=== PATIENT | female | born 1945 ===

== ENCOUNTER 2017-02-06 21:07 | Inpatient (IN) ==
[2017-02-06] MEDS ORDERED: SODIUM CHLORIDE 0.9% 1,000 ML IV STA (21:40)
[2017-02-06] MEDS ORDERED: LEVOFLOXACIN INJ 750 MG in PREMIX 1 EACH IV STA (21:40)
[2017-02-06] MEDS ORDERED: VANCOMYCIN INJ 1,000 MG in SODIUM CHLORIDE 0.9% 250 ML IV STA (21:40)
[2017-02-06] MEDS ORDERED: VANCOMYCIN 1,000 MG VIAL ONE (22:23)
[2017-02-06 23:23] LABS: Lactic Acid 1.5 MMOL/L (0.4-2.0)
[2017-02-06 23:26] LABS: Troponin I Only 0.028 NG/ML (0.00-0.045)
[2017-02-07] MEDS ORDERED: NOREPINEPHRINE 4 MG/4 ML VIAL IV ONE (00:09)
--- NOTE | 2017-02-07 00:27 | Emergency Department Note ---
Gerard Avila Brittany, am scribing for, and in the presence of, Melissa Watson MD 21:46. Shirley Avila Leanne, MD, personally performed the services described in this documentation, ascribed by Mendy Gee in my presence, and it is both accurate and complete . Arrival - Arrival Chief Complaint: Non-Specific Stated Complaint: left arm swelling, brusing to right side of chest ED Nursing Triage Note: Patient to room via ems. Patient was transfered from [facility] for sepsis, left arm swelling, cellulitis and possible pneumonia. Patient has brusing to her right chest and arm as well. Patient is hypertensive and hypothermia. Mode of Arrival: Stretcher Limitations: No Limitations Source: Patient, RN Notes Reviewed Time Seen by Provider: 02/06/17 21:28 - History of Present Illness HPI Narrative: Patient is a 71 y/o [place] female presenting to the ED by EMS from [facility] for further evaluation of Sepsis, Left Upper Extremity Swelling, Cellulitis, and PNA. Patient states that she has had swelling to the LUE and complains of adamson localized to the right knee and ankle. She denies suffering any adamson to the LUE. Patient reports that adamson were a result of spilling a pot of hot beans onto her RLE. Patient does have a Pacemaker and history of Left Breast CA with prior Left Breast Mastectomy. She has some suspicious ecchymosis to the right breast. Patient is unsure of where this came from. In room patient has a blood pressure of 98/41 mmHg and upon arrival was noted to have a temperature of 93.0. Further history is unobtainable due to patient being somewhat of a poor historian. No other complaint/pain. Allergies/Adverse Reactions: Allergies Allergy/AdvReac Type Severity Reaction Status Date / Time Sulfa (Sulfonamide Allergy Unknown Unknown/Unable Verified 02/06/17 21:20 Antibiotics) to obtain Home Medications: Home Medications Medication Instructions Recorded Confirmed Type Carvedilol 0.5 tablet PO BID 09/19/15 05/06/16 History Furosemide Tab [Lasix Tab] 40 mg PO DAILY 09/19/15 05/06/16 History Gabapentin Cap/Tab [Neurontin 100 mg PO BID 09/19/15 09/19/15 History Cap/Tab] Simvastatin 20 mg PO DAILY 09/19/15 05/06/16 History Spironolactone [Aldactone] 25 mg PO DAILY 09/19/15 05/06/16 History Aspirin/Calcium Carbonate/Mag 325 mg PO DAILY #100 tablet 09/23/15 Rx [Aspirin Buffered 325 mg Tab] Insulin Glargine [Lantus] 10 unit SUBCUT BEDTIME #10 ml 09/23/15 Rx Lactulose Liquid [Chronulac] 20 gm PO Q4H PRN #30 udcup 09/23/15 Rx glipiZIDE XL [Glucotrol Xl] 10 mg PO DAILY tablet 09/23/15 05/06/16 Rx Aspirin [Ecotrin] 81 mg PO DAILY 05/06/16 05/06/16 History Nitroglycerin [Nitroglycerin SL 0.4 mg SL Q5M PRN 05/06/16 05/06/16 History Tab] Saxagliptin HCl [Onglyza] 5 mg PO DAILY 05/06/16 05/06/16 History Meclizine [Antivert] 25 mg PO TID #14 tablet 11/02/16 Rx Review of System - Review of System ROS unobtainable: other (limited due to patient being a poor historian) 12 point system: reviewed and no additional remarkable complaints except as stated - Review of System Constitutional: Absent: chills, fever Respiratory: Absent: respiratory distress Cardiovascular: Absent: chest pain Gastrointestinal: Absent: abdominal pain, nausea, vomiting, diarrhea, constipation Musculoskeletal: Present: as per HPI Skin: Present: as per HPI Neurological: Absent: headache Medical,Surgical,& Family Hx - Medical History Cardio: History of: CHF, Hypertension, Pacemaker, Cardiovascular Problems ( murmur) Endocrine: History of: Diabetes Mellitus (IDDM), Diabetes Mellitus (NIDDM), Dyslipidemia Gastrointestinal: History of: Diverticulitis/ Diverticulosis Reproductive: History of: Breast Cancer (remission, did have chemo and radiation ) - Surgical History Cardiac Surgeries: Sugical HX of: Cardiac Catheterization (stent), Vascular Access Devices (pacer) Reproductive Surgeries: Surgical HX of;: Breast Surgery (left breast removed.) - Family History Family History: Reports;: Family Diabetes, Family Heart Disease - Social History Smoking Status: Never smoker Frequency of Alcohol Use: None Type of Drug Use: None Exam Vital Signs: Vital Signs Temperature 93.0 F L 02/06/17 21:08 Pulse Rate 60 05/06/17 21:08 Respiratory Rate 15 02/06/17 22:16 Blood Pressure 92/55 02/06/17 21:08 O2 Sat by Pulse Oximetry 97 02/06/17 21:08 - General General appearance: alert, in no apparent distress - Head Head exam: Present: atraumatic, normocephalic, normal inspection - Eye Eye exam: Present: normal appearance, PERRL, EOMI - ENT ENT exam: Present: normal exam, normal oropharynx - Neck Neck exam: Present: normal inspection, full ROM, trachea midline - Chest Chest inspection: Present: symmetric chest wall rise. Absent: normal inspection (diffuse ecchymosis and erythema to the right breast; left breast mastectomy) - Respiratory Respiratory exam: Present: normal lung sounds bilaterally. Absent: rales, rhonchi, wheezes - Cardiovascular Cardiovascular exam: Present: regular rate, normal rhythm, normal heart sounds. Absent: murmur, rubs, gallop - Abdominal Exam Abdominal exam: Present: soft, normal bowel sounds. Absent: distention, tenderness - Extremities Exam Extremities exam: Present: full ROM. Absent: normal inspection (second degree adamson to the right knee and right ankle; swollen left upper extremity) - Back Exam Back exam: Absent: normal inspection (erythematous areas on the back) - Neurological Exam Neurological exam: Present: alert, oriented X3, CN II-XII intact. Absent: motor sensory deficit - Psychiatric Psychiatric exam: Present: normal affect, normal mood - Skin Skin exam: Present: warm, dry, other (ecchymotic areas to the right breast; erythema to the back; adamson noted to the right knee and right ankle) Course Course Narrative: ns bolus, added vanc and levaquin. pressure still around 90s. added pressors. Results - Labs Lab Results: I have reviewed the patients labs Labs: Laboratory Tests 02/06/17 02/06/17 22:54 22:54 Lactic Acid 1.5 Troponin I 0.028 C-Reactive Protein 5.08 H Laboratory Tests 02/06/17 22:54 ESR Westergren 2 - EKG EKG results: interpreted by CAMILLE - Impressions paced rhythm. no st elevation. rate of 60 - Diagnostic Findings Procedure: CT - chest: report reviewed by me (Nonspecific right chest wall and axillary soft tissue edema without evidence of organized hematoma or concerning fluid collection. Pulmonary edema with bilateral pleural effusions, atelectasis , and body wall edema and ascites suggesting diffuse capillary leak.) Disposition Clinical Impression: Diabetes mellitus, Chronic CHF (congestive heart failure), Cellulitis, Sepsis Case discussed with: patient Condition: Guarded Additional Instructions: admit to hospitalist
[2017-02-07] MEDS: NOREPINEPHRINE 8 MG in SODIUM CHLORIDE 0.9% 242 ML IV SCH (00:34)
[2017-02-07] MEDS ORDERED: LEVOFLOXACIN INJ 150 ML IV ONE (00:35)
--- NOTE | 2017-02-07 02:00 | Hospitalist History & Physical ---
Assessment and Plan (1) Septic shock Status: Acute Assessment and plan: Secondary to cellulitis of left forearm and right lower extremity Continue IV vancomycin, pharmacy to dose Continue Zosyn Imaging of the affected areas with plain films to assess for air/possibility of necrotizing fasciitis Continue Levophed, admit to the ICU Lactate trended Workup for DIC Current Visit: Yes (2) CKD (chronic kidney disease) stage 3, GFR 30-59 ml/min Status: Acute Assessment and plan: Appears to be likely near baseline, monitor urine output closely Current Visit: Yes (3) Lactic acidosis Status: Acute Assessment and plan: Initial lactate 2.8, is trended down with IVF's Current Visit: Yes (4) Thrombocytopenia Status: Acute Assessment and plan: Uncertain cause. Differential includes sepsis, liver disease, medications Workup for DIC/hemolysis Treat underlying sepsis Workup for liver disease with liver ultrasound Current Visit: Yes (5) Elevated liver enzymes Status: Acute Assessment and plan: Total bilirubin 3.8, transaminases without a clear pattern of injury. May have underlying cirrhosis or could be secondary to sepsis. Liver ultrasound. Current Visit: Yes (6) Diabetes mellitus Status: Acute Assessment and plan: Glucose 115 and [facility] Hold saxagliptin and Lantus 10 units nightly Serial fingerstick glucose, lispro sliding scale insulin Current Visit: Yes Qualifiers: Diabetes mellitus type: type 2 Diabetes mellitus complication status: with kidney complications Diabetes mellitus complication detail: with chronic kidney disease Diabetes mellitus half-way insulin use: with termite control representative use Chronic kidney disease stage: stage 3 (moderate) Qualified Code(s): E11.22 - Type 2 diabetes mellitus with diabetic chronic kidney disease; N18.3 - Chronic kidney disease, stage 3 (moderate); Z79.4 - nursing home (current) use of insulin (7) Chronic systolic (congestive) heart failure Status: Acute Assessment and plan: Respiratory status currently stable despite distributive shock, BNP 136,000 spare further fluids as much as possible Hold Coreg, Lasix and Aldactone secondary to septic shock Current Visit: No (8) Cellulitis Status: Acute Assessment and plan: Antibiotics and imaging as above Current Visit: Yes History of Present Illness Chief complaint: Septic shock History of present illness: Ms. Blackmon is a 71 year old female with hypertension, diabetes, left breast cancer status post mastectomy, pacemaker, CKD 3, heart failure the presented with a chief complaint of septic shock. Patient currently has an altered mental status and is unable to provide to her own history. From what I can gather looking through records it looks as though home health directed her to go to the [facility] where she was found to have sepsis secondary to cellulitis. She has redness and swelling of the left arm with some denuded skin. She has superficial bruising over her pacemaker. She has ulcerations on her anterior right leg which reportedly are third degree adamson from spilling boiling hot baked beans. She was started on vancomycin and Zosyn which she received around 4 PM. She was transferred to [place] for higher level of care where she persisted to be hypotensive despite fluid resuscitation and was started on levophed. She was also given an additional dose of vancomycin at 9 PM and a first dose of Levaquin at midnight. She has been hypothermic down to 91.5 rectally and was placed on a warming blanket. At the time of my exam patient was disoriented and gave a bizarre chief complaint of "getting shot" but she was able to deny shortness of breath, chest pain, abdominal pain. She did say that she was hungry. I have reviewed the workup performed in the emergency department including lab and imaging data. I discussed her case to the emergency department providers. Home Medications Medication Instructions Recorded Confirmed Type Carvedilol 0.5 tablet PO BID 09/19/15 05/06/16 History Furosemide Tab [Lasix Tab] 40 mg PO DAILY 09/19/15 05/06/16 History Gabapentin Cap/Tab [Neurontin 100 mg PO BID 09/19/15 09/19/15 History Cap/Tab] Simvastatin 20 mg PO DAILY 09/19/15 05/06/16 History Spironolactone [Aldactone] 25 mg PO DAILY 09/19/15 05/06/16 History Aspirin/Calcium Carbonate/Mag 325 mg PO DAILY #100 tablet 09/23/15 Rx [Aspirin Buffered 325 mg Tab] Insulin Glargine [Lantus] 10 unit SUBCUT BEDTIME #10 ml 09/23/15 Rx Lactulose Liquid [Chronulac] 20 gm PO Q4H PRN #30 udcup 09/23/15 Rx glipiZIDE XL [Glucotrol Xl] 10 mg PO DAILY tablet 09/23/15 05/06/16 Rx Aspirin [Ecotrin] 81 mg PO DAILY 05/06/16 05/06/16 History Nitroglycerin [Nitroglycerin SL 0.4 mg SL Q5M PRN 05/06/16 05/06/16 History Tab] Saxagliptin HCl [Onglyza] 5 mg PO DAILY 05/06/16 05/06/16 History Meclizine [Antivert] 25 mg PO TID #14 tablet 11/02/16 Rx Allergies Allergy/AdvReac Type Severity Reaction Status Date / Time Sulfa (Sulfonamide Allergy Unknown Unknown/Unable Verified 02/06/17 21:20 Antibiotics) to obtain Medical,Surgical,& Family Hx - Medical History Cardio: History of: CHF, Hypertension, Pacemaker, Cardiovascular Problems ( murmur) Endocrine: History of: Diabetes Mellitus (IDDM), Diabetes Mellitus (NIDDM), Dyslipidemia Gastrointestinal: History of: Diverticulitis/ Diverticulosis Reproductive: History of: Breast Cancer (remission, did have chemo and radiation ) - Surgical History Cardiac Surgeries: Sugical HX of: Cardiac Catheterization (stent), Vascular Access Devices (pacer) Reproductive Surgeries: Surgical HX of;: Breast Surgery (left breast removed.) - Family History Family History: Reports;: Family Diabetes, Family Heart Disease - Social History Smoking Status: Never smoker Frequency of Alcohol Use: None Type of Drug Use: None Marital Status: Unknown ROS unobtainable: due to mental status Exam - Constitutional Vitals: Period Temp Pulse Resp BP Sys/Minor Pulse Ox Last 24 Hr 93.0 F 60-60 11-15 79-115/41-55 96-99 General appearance: over weight Exam: - Eye Eye exam: Present: EOMI. Absent: conjunctival injection, scleral icterus Pupils: Present: ROGE - ENT ENT exam: Present: normal external ear exam, normal oropharynx - Expanded ENT Exam Mouth exam: Present: moist - Neck Neck exam: Present: normal inspection. Absent: lymphadenopathy, thyromegaly - Respiratory Respiratory exam: Present: clear to auscultation bilaterally. Absent: accessory muscle use, rales, rhonchi, wheezes - Cardiovascular Cardiovascular exam: Present: regular rate and rhythm. Absent: diastolic murmur , systolic murmur - GI/Abdominal GI/Abdominal exam: Present: normal bowel sounds, soft. Absent: distended, hyperactive bowel sounds, hypoactive bowel sounds, organomegaly, tenderness, rebound - Extremities Exam Extremities exam: Present: Extensive subcutaneous edema, worse in left forearm, right lower extremity, but also present and left lower extremity. Ulcerations which may be third degree adamson on her left forearm and right lower leg with surrounding erythema and weeping fluid. - Neurological Exam Neurological exam: Present: alert, disoriented, CN II-XII intact. Absent: motor sensory deficit - Psychiatric Psychiatric exam: Present: Confused affect - Skin Skin exam: Present: Cool, dry. Results - Impressions Paced rhythm with rate set at 60 - Diagnostic Findings Procedure: CT - chest: report reviewed by me, X-ray: report reviewed by me
[2017-02-07] MEDS ORDERED: ACETAMINOPHEN 325 MG TABLET PO PRN (02:59)
[2017-02-07] MEDS ORDERED: NITROGLYCERIN SL 0.4 MG TABLET SL PRN (02:59)
[2017-02-07] MEDS ORDERED: DEXTROSE 50% 25 GM/50 ML VIAL IV PRN (02:59)
[2017-02-07] MEDS ORDERED: GLUCAGON 1 MG VIAL IM PRN (02:59)
[2017-02-07 03:50] LABS: Albumin 1.5 G/DL (3.4-5.0); Bilirubin,Total 2.5 MG/DL (0.2-1.0); Calcium 7.2 MG/DL (8.5-10.1); Magnesium 2.3 MG/DL (1.8-2.4); Osmolality,Calculated 297.1 MOS/KG (273-304); Potassium 4.3 MMOL/L (3.5-5.1); Total Protein 4.9 G/DL (6.4-8.3)
[2017-02-07] MEDS ORDERED: PIPERACILLIN/TAZOBACTAM 3,375 MG in SODIUM CHLORIDE 0.9% 100 ML IV ONE (04:00)
[2017-02-07 04:07] LABS: INR 1.9; PT Patient Result 20.7 SECS
[2017-02-07 04:08] LABS: Basophils % 0.1 % (0.0-0.8); Eosinophils # 0.1 10*3/uL (0.0-0.87); Eosinophils % 1.4 % (0.00-10.9); Hematocrit 36.8 VOL% (35.7-47.0); Hemoglobin 11.8 GM/DL (12.0-16.0); Immature Granulocytes % 0.7 %; Immature Granulocytes Absolute 0.06 #; Lymphocytes # 0.3 10*3/uL (1.4-4.0); Mean Corpuscular HGB Conc 32.1 GM/DL (32-36); Mean Corpuscular Hemoglobin 27 PG (27-34); Mean Corpuscular Volume 83.8 FL (87-102); Monocytes # 0.4 10*3/uL (0.11-0.8); Monocytes % 4.3 % (1.7-12.7); NRBC # 0.03 10*3/uL; Neutrophils # 7.6 10*3/uL (1.4-7.4); Neutrophils % 89.5 % (38.7-73.9); Red Blood Count 4.39 MC/CUMM (3.8-5.5); Red Cell Distribution Width 25.4 % (9.3-17.3); White Blood Count 8.5 T/CUMM (4-12)
[2017-02-07 04:16] LABS: D-Dimer 14.4 MG/L FEU
[2017-02-07 04:52] LABS: Partial Thromboplastin Time 56.2 SECS (0-40)
[2017-02-07 04:55] LABS: Platelet Count 63 T/CUMM (130-400)
[2017-02-07 05:23] LABS: Haptoglobin < 31.0 MG/DL (30-200)
[2017-02-07 05:30] LABS: Acanthocytes 2+; Anisocytosis 1+; Band Neutrophils 3 % (0-10); Eosinophils 1 % (0-10); Hypochromasia 2+; Lymphocytes 5 % (20-55); Macrocytosis 1+; Ovalocytes 1+; Platelet Estimate Decreased; Segmented Neutrophils 87 % (50-85)
[2017-02-07 05:31] LABS: Total Cells Counted 100
[2017-02-07] MEDS: INSULIN LISPRO 100 UNIT/ML SUBCUT SCH ×3 (06:05→17:49)
--- NOTE | 2017-02-07 07:01 | CT Report ---
Referring physician: Melissa Watson EXAM: CT chest without contrast DATE: February 06, 2017 COMPARISON: None REASON: Left arm swelling and right chest wall bruising, no history of trauma Preliminary report was provided by [facility]. TECHNIQUE: Axial images of the chest were obtained without the use of IV contrast. Coronal and sagittal reformatted images were also provided. Total DLP is 297.8 mGy*cm. FINDINGS: Vasculature/Heart: The thoracic aorta is normal in size. There is mild to moderate scattered calcified plaque at the arteries, including the coronary arteries. There is cardiomegaly, and a pacemaker is in place. The pacemaker produces local artifact at the right chest wall. The pulmonary arteries are unremarkable as visualized. There is a small pericardial effusion. Lymph nodes: Calcified mediastinal and hilar lymph nodes are present. Evaluation for adenopathy is limited by the lack of IV contrast, but no suspicious adenopathy is seen at the chest. Surgical clips are noted at the left axilla. Lungs: There is moderate left pleural fluid and a moderate to large amount of right pleural fluid. Interlobular septal thickening and scattered opacities are seen within both lungs, right slightly greater than left. This is most consistent with pulmonary edema and atelectasis. Pneumonia is difficult to exclude but is felt less likely. Evaluation for a pulmonary nodule in this setting is limited, and follow-up is recommended to confirm resolution. Bones: There is mild degenerative change at the thoracic spine. Mild height loss is seen at the superior endplate of T12. This likely represents a prominent Schmorl's node. No acute osseous process is identified. Chest wall: The patient is status post left mastectomy. There is diffuse edema at the right breast. The patient has a history of right chest wall bruising, but no obvious organized hematoma or organized fluid collection is identified in this region. There is also prominent diffuse anasarca at the lower chest wall and visualized abdominal wall. Upper abdomen: There is mild ascites within the visualized upper abdomen. IMPRESSION: 1. There is nonspecific diffuse edema at the right chest wall/breast, extending to the right axilla. No organized hematoma or organized fluid collection is identified in this region. There is also diffuse anasarca at the lower chest wall and visualized abdominal wall. 2. There is moderate left pleural fluid and a moderate to large amount of right pleural fluid. There is also evidence of pulmonary edema and atelectasis within both lungs. Follow-up is recommended to confirm resolution. 3. Cardiomegaly and small pericardial effusion. 4. Mild ascites within the upper abdomen. 5. Left mastectomy. The CT exam was performed using one or more of the following dose reduction techniques: Automated exposure control and adjustment of the mA and/or kV according to patient size. PROCEDURE INTERPRETED AT [facility] DEPARTMENT OF RADIOLOGY Final Report Signed by: Dr. Antionette Adhikari
--- NOTE | 2017-02-07 09:35 | EKG Report ---
Stationary ECG Study [facility] Test Date: 02/07/2017 12:24:07 AM Pat Name: MARIA ISABEL GEIGER Department: Room: 116 Gender: F General Contractor: : 1945 Requested by: Melissa Watson Order Number: [id number] Reading MD: GIL BOATENG Intervals [place] Rate: 60 P: 248 PA: 201 QRS: 66 QRSD: 91 T: 212 QT: 421 QTc: 421 Interpretive Statements ELECTRONIC ATRIAL PACEMAKER At 60 bpm ELECTRONIC VENTRICULAR PACEMAKER ABNORMAL RHYTHM ECG Electronically Signed On 02-08-17 16:50:03 CDT by GIL BOATENG [email or web address]
--- NOTE | 2017-02-07 09:42 | XRay Report ---
Referring Physician: Jake Alexander MD Exam: XR chest 1V portable Date: February 07, 2017 at 3:15 AM Reason: Shortness of breath Comparison: Chest single view February 06, 2017 Findings: The cardiac silhouette is again enlarged, and a cardiac pacing device is in place. The interstitial markings are diffusely prominent bilaterally, and there are scattered opacities within both lungs. This is concerning for atelectasis and pulmonary edema. Pneumonia is in the differential but is felt less likely. No pneumothorax is identified, but there is bilateral pleural fluid. The osseous structures appear stable. The patient is status post left mastectomy, and there are surgical clips at the left axilla. Impression: There has been no significant change. PROCEDURE INTERPRETED AT [facility] DEPARTMENT OF RADIOLOGY Final Report Signed by: Dr. Antionette Adhikari
--- NOTE | 2017-02-07 09:44 | XRay Report ---
Referring Physician: Jake Alexander MD Exam: XR right ankle 2 views, XR right tibia/fibula 2 views Date: February 07, 2017 at 3:18 AM Reason: Cellulitis Comparison: None Findings: There has been internal fixation of the distal right femur. No acute fracture, dislocation or osseous destructive process is identified at the right fibula or tibia. There appears to be diffuse demineralization/osteoporosis. There is mild to moderate marginal spurring at the calcaneus, both at the plantar and posterior aspects. No acute fracture, dislocation or osseous destructive process is identified at the right ankle. Prominent scattered arterial calcification is noted. Impression: 1. No acute osseous process is identified at the right tibia or fibula. 2. No acute osseous process is identified at the right ankle. PROCEDURE INTERPRETED AT [facility] DEPARTMENT OF RADIOLOGY Final Report Signed by: Dr. Antionette Adhikari
--- NOTE | 2017-02-07 09:47 | XRay Report ---
Referring Physician: Jake Alexander MD Exam: XR right knee 2 views Date: February 07, 2017 at 3:20 AM Reason: Cellulitis Comparison: Right tibia/fibula x-rays February 07, 2017 Findings: There has been internal fixation of the right femur. A fracture line is still visible at the distal diaphysis of the right femur. There is also minimal degenerative change at the right knee. No osseous destructive process is identified. Note is made of diffuse mineralization/osteoporosis. There is also prominent scattered arterial calcification. Impression: There has been internal fixation of the distal right femur, and a fracture line is still visible at the distal diaphysis of the right femur. However, there is no radiographic evidence of osteomyelitis. PROCEDURE INTERPRETED AT [facility] DEPARTMENT OF RADIOLOGY Final Report Signed by: Dr. Antionette Adhikari
--- NOTE | 2017-02-07 09:50 | XRay Report ---
Referring Physician: Jake Alexander MD Exam: XR left forearm 2 views Date: February 07, 2017 at 3:21 AM Reason: Cellulitis Comparison: Left forearm x-rays February 06, 2017 Findings: There is degenerative change at the left elbow with marginal spurring at the radial head. No acute fracture, dislocation or osseous destructive process is identified. However, there appears to be diffuse soft tissue swelling at the left forearm, and there may be a wound at the radial aspect of the left forearm. Note is made of prominent scattered arterial calcification. Impression: No acute osseous process is identified. However, there appears to be diffuse soft tissue swelling at the left forearm, and there may be a soft tissue wound at the radial aspect of the left forearm. PROCEDURE INTERPRETED AT [facility] DEPARTMENT OF RADIOLOGY Final Report Signed by: Dr. Antionette Adhikari
[2017-02-07] MEDS: ASPIRIN EC 81 MG TABLET PO SCH (10:34)
[2017-02-07] MEDS: GABAPENTIN 100 MG CAPSULE PO SCH ×2 (10:34→21:55)
--- NOTE | 2017-02-07 11:21 | Ultrasound Report ---
Referring Physician: Jake Alexander MD Exam: US liver Date: February 07, 2017 Reason: Septic shock, elevated total bilirubin Comparison: None Technique: Grayscale and color flow ultrasound images of the abdomen were obtained. Ultrasound images were captured and stored. Findings: The liver measures 13.5 cm in length. No suspicious hepatic lesion is identified. There is echogenic material with shadowing within the gallbladder. This is concerning for gallbladder sludge and stones. The gallbladder wall is also thickened, but no pericholecystic fluid is identified. The common bile duct is normal in size, measuring 0.3 cm in diameter. The visualized pancreas is unremarkable. The right kidney measures 9.8 x 5.1 x 4.2 cm. No right hydronephrosis or suspicious renal lesion is identified. There is right pleural fluid as seen on the recent CT. Mild ascites was seen on the recent CT but is not well demonstrated on this study. Impression: 1. Gallstones and gallbladder sludge are present. There is also diffuse gallbladder wall thickening. However, this gallbladder wall thickening is nonspecific in the setting of ascites and diffuse anasarca which is seen on the recent CT. Confirmation of cholecystitis is difficult in this setting, and further evaluation could be performed with a nuclear medicine biliary scan. 2. No biliary duct dilatation is seen. 3. Right pleural effusion. Mild ascites was also seen on the recent CT but is not well-demonstrated on this study. Findings were discussed with Dr. Aguilar on February 07, 2017 at 11:15 AM. PROCEDURE INTERPRETED AT [facility] DEPARTMENT OF RADIOLOGY Final Report Signed by: Dr. Antionette Adhikari
[2017-02-07 11:39] LABS: Amorphous Crystals,Urine Occasional /HPF (Few); Apearance,Urine CLOUDY (Clear); Bacteria,Urine Occasional /HPF (Few); Bilirubin,Urine Negative (Negative); Blood, Urine Small mg/dL (Negative); Glucose,Urine (UA) Negative (Negative); Ketones,Urine Negative (Negative); Mucus,Urine Occasional /LPF (Occasional); Nitrite,Urine Negative (Negative); Protein,Urine 100 MG/DL; RBC,Urine 4 /HPF (0-4); Squamous Epithelial Cell,Urine Few /HPF (0-10); Urine Color Dark yellow (Yellow); Urine Specific Gravity 1.011 (1.001-1.035); Urine Urobilinogen < 2.0 EU/DL (0.2-1.0); WBC,Urine 9 /HPF (0-6)
[2017-02-07] MEDS ORDERED: LEVOFLOXACIN INJ 500 MG in PREMIX 1 EACH IV SCH (15:00)
[2017-02-07] MEDS: cefTRIAXone 1,000 MG in SODIUM CHLORIDE 0.9% 100 ML IV SCH (15:07)
[2017-02-07] MEDS: SPIRONOLACTONE 25 MG TABLET PO SCH (15:07)
[2017-02-07] MEDS ORDERED: PIPERACILLIN/TAZOBACTAM 3,375 MG in SODIUM CHLORIDE 0.9% 100 ML IV SCH (16:00)
[2017-02-07] MEDS: LEVOFLOXACIN INJ 500 MG in PREMIX 1 EACH IV SCH (21:56)
[2017-02-08] MEDS: INSULIN LISPRO 100 UNIT/ML SUBCUT SCH ×5 (00:01→21:24)
[2017-02-08] MEDS: NOREPINEPHRINE 8 MG in SODIUM CHLORIDE 0.9% 242 ML IV SCH (00:02)
[2017-02-08 06:32] LABS: Magnesium 2.2 MG/DL (1.8-2.4); Osmolality,Calculated 294.4 MOS/KG (273-304); Potassium 4.6 MMOL/L (3.5-5.1)
[2017-02-08 07:54] LABS: Basophils % 0.3 % (0.0-0.8); Eosinophils # 0.1 10*3/uL (0.0-0.87); Eosinophils % 0.8 % (0.00-10.9); Hematocrit 39.7 VOL% (35.7-47.0); Hemoglobin 12.7 GM/DL (12.0-16.0); Immature Granulocytes % 0.5 %; Immature Granulocytes Absolute 0.06 #; Lymphocytes # 0.6 10*3/uL (1.4-4.0); Lymphocytes % 5.3 % (21.3-54.2); Mean Corpuscular Hemoglobin 27 PG (27-34); Mean Corpuscular Volume 83.6 FL (87-102); Monocytes # 0.7 10*3/uL (0.11-0.8); Monocytes % 6.4 % (1.7-12.7); NRBC # 0.06 10*3/uL; Neutrophils # 9.7 10*3/uL (1.4-7.4); Neutrophils % 86.7 % (38.7-73.9); Platelet Count 65 T/CUMM (130-400); Red Blood Count 4.75 MC/CUMM (3.8-5.5); Red Cell Distribution Width 25.7 % (9.3-17.3); White Blood Count 11.1 T/CUMM (4-12)
[2017-02-08 08:14] LABS: Burr Cells 2+; Hypochromasia Slight; Target Cells Slight
[2017-02-08] MEDS: GABAPENTIN 100 MG CAPSULE PO SCH ×2 (08:57→21:23)
[2017-02-08] MEDS: SPIRONOLACTONE 25 MG TABLET PO SCH (08:57)
[2017-02-08] MEDS: ASPIRIN EC 81 MG TABLET PO SCH (08:57)
[2017-02-08] MEDS: cefTRIAXone 1,000 MG in SODIUM CHLORIDE 0.9% 100 ML IV SCH (14:50)
--- NOTE | 2017-02-08 15:11 | Hospitalist Progress Note ---
Assessment and Plan (1) Cellulitis Status: Acute Assessment and plan: Change to Rocephin to Teflaro for added MRSA coverage. Continue levaquin. Current Visit: Yes Qualifiers: Site of cellulitis: extremity Site of cellulitis of extremity: upper extremity Laterality: left Qualified Code(s): L03.114 - Cellulitis of left upper limb (2) Sepsis Status: Acute Current Visit: Yes Qualifiers: Sepsis type: sepsis due to unspecified organism Qualified Code(s): A41.9 - Sepsis, unspecified organism (3) Diabetes mellitus Status: Acute Assessment and plan: Sliding scale insulin with Accu-Cheks. Current Visit: Yes Qualifiers: Diabetes mellitus type: type 2 Diabetes mellitus complication status: with kidney complications Diabetes mellitus complication detail: with chronic kidney disease Diabetes mellitus senior care insulin use: with senior care use Chronic kidney disease stage: stage 3 (moderate) Qualified Code(s): E11.22 - Type 2 diabetes mellitus with diabetic chronic kidney disease; N18.3 - Chronic kidney disease, stage 3 (moderate); Z79.4 - adjunct faculty for medical terminology (current) use of insulin (4) Anemia Status: Chronic Current Visit: No Qualifiers: Other causes of anemia: chronic disease, kidney (5) CKD (chronic kidney disease) stage 3, GFR 30-59 ml/min Status: Acute Assessment and plan: With acute worsening. Consult nephrology. Add IV fluids. Avoid nephrotoxic medications. Current Visit: Yes (6) Thrombocytopenia Status: Acute Current Visit: Yes (7) Elevated liver enzymes Status: Acute Current Visit: Yes Hospitalist: Subjective Interval history: Patient seen and examined. No acute events overnight. Case discussed with nursing staff. Labs reviewed. Urine culture with gram-positive cocci. Other cultures negative. Renal function worsening. Aldactone held and nephrology consult placed. IV fluids started. Patient with significant third spacing and edema. Albumin ordered. Exam - Constitutional Vitals: Period Temp Pulse Resp BP Sys/Minor Pulse Ox Last 24 Hr 96.4 F-97.4 F 60-78 8-20 77-154/26-88 96-99 Exam: Constitutional System: Mild distress. No tremulousness. On Levophed Head: Normocephalic, atraumatic. Ears, Nose and Throat System: No pain or tenderness. No epistaxis or discharge Eyes System: Pupils equal, round, and reactive. Extraocular muscles intact. Neck: Supple, without adenopathy, No jugular venous distention. No thyromegaly, neck mass, or prior surgery apparent. Respiratory System: Chest coarse breath sounds to auscultation. Cardiovascular System: Heart with regular rate and rhythm. No murmur. GI System: Abdomen soft, nontender. Normo active bowel sounds present. Musculoskeletal System: limbs with pitting bilateral pedal edema. Full distal pulses. Edema in the bilateral upper extremities. Cellulitis noted in the left arm. Neurological System: No discernable sensory deficit. No aphasia Psychiatric System: Conversation is rational Results - Labs CBC & BMP: 02/08/17 07:48 02/08/17 05:51 Lab Results: I have reviewed the past 24 hour labs
[2017-02-08] MEDS: SODIUM CHLORIDE 0.9% 1,000 ML IV SCH (15:38)
[2017-02-08] MEDS: ALBUMIN 25% 25 GM in PREMIX 1 EACH IV SCH ×2 (15:38→23:16)
[2017-02-08] MEDS: CEFTAROLINE 200 MG in SODIUM CHLORIDE 0.9% 100 ML IV SCH (16:55)
[2017-02-08] MEDS: SILVER SULFADIAZINE 1% CREAM 25 GM TUBE TOP SCH (17:06)
[2017-02-09] MEDS: NOREPINEPHRINE 8 MG in SODIUM CHLORIDE 0.9% 242 ML IV SCH (02:15)
[2017-02-09] MEDS: CEFTAROLINE 200 MG in SODIUM CHLORIDE 0.9% 100 ML IV SCH ×2 (03:51→15:59)
[2017-02-09] MEDS: SODIUM CHLORIDE 0.9% 1,000 ML IV SCH (04:50)
[2017-02-09 05:45] LABS: Basophils % 0.3 % (0.0-0.8); Eosinophils # 0.1 10*3/uL (0.0-0.87); Eosinophils % 1.3 % (0.00-10.9); Hematocrit 35.7 VOL% (35.7-47.0); Immature Granulocytes % 0.5 %; Immature Granulocytes Absolute 0.04 #; Lymphocytes # 0.6 10*3/uL (1.4-4.0); Lymphocytes % 7.6 % (21.3-54.2); Mean Corpuscular HGB Conc 30.8 GM/DL (32-36); Mean Corpuscular Hemoglobin 27 PG (27-34); Mean Corpuscular Volume 86.7 FL (87-102); Monocytes # 0.6 10*3/uL (0.11-0.8); Monocytes % 7.9 % (1.7-12.7); NRBC # 0.02 10*3/uL; Neutrophils # 6.2 10*3/uL (1.4-7.4); Neutrophils % 82.4 % (38.7-73.9); Platelet Count 56 T/CUMM (130-400); Red Blood Count 4.12 MC/CUMM (3.8-5.5); Red Cell Distribution Width 25.9 % (9.3-17.3); White Blood Count 7.5 T/CUMM (4-12)
[2017-02-09 06:18] LABS: Calcium 7.3 MG/DL (8.5-10.1); Magnesium 2.3 MG/DL (1.8-2.4); Osmolality,Calculated 298.1 MOS/KG (273-304); Potassium 4.5 MMOL/L (3.5-5.1)
[2017-02-09 06:24] LABS: Band Neutrophils 1 % (0-10); Burr Cells Slight; Elliptocytes Few; Eosinophils 1 % (0-10); Hypochromasia 1+; Lymphocytes 1 % (20-55); Macrocytosis Slight; Nucleated Red Blood Cells 1 (0-5); Platelet Estimate Decreased; Segmented Neutrophils 89 % (50-85); Total Cells Counted 100
[2017-02-09] MEDS: INSULIN LISPRO 100 UNIT/ML SUBCUT SCH ×4 (06:33→21:17)
[2017-02-09] MEDS: ALBUMIN 25% 25 GM in PREMIX 1 EACH IV SCH ×3 (07:23→23:06)
[2017-02-09] MEDS: ASPIRIN EC 81 MG TABLET PO SCH (08:29)
[2017-02-09] MEDS: GABAPENTIN 100 MG CAPSULE PO SCH ×2 (08:29→21:16)
[2017-02-09] MEDS: SILVER SULFADIAZINE 1% CREAM 25 GM TUBE TOP SCH (08:31)
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
[2017-02-09] MEDS ORDERED: VANCOMYCIN INJ 1,000 MG in SODIUM CHLORIDE 0.9% 250 ML IV SCH (09:00)
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
[2017-02-09] MEDS: SODIUM ACETATE 150 MEQ in DEXTROSE 5% 925 ML IV SCH (11:23)
[2017-02-09 12:40] LABS: Microalbum/Creat Ratio Random 712.1 RATIO (0-30)
--- NOTE | 2017-02-09 13:52 | Post Interventional Procedure ---
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 Cut PICC short terminating in the mid subclavian vein. Cannot use left arm due to cellulitis.
--- NOTE | 2017-02-09 14:23 | Interventional Radiology Rpt ---
IR PICC line insertion, US guide vascular access Indication: Left upper extremity cellulitis. No peripheral IV access. History of left mastectomy. Right subclavian pacemaker/AICD. PICC LINE Description: A formal timeout was performed. Maximum sterile barrier technique was used. Sonographic evaluation of the right upper extremity demonstrates patent and compressible basilic vein. The upper arm was prepped and draped in sterile fashion. 3 cc 1% lidocaine was administered subcutaneously. Under sonographic guidance, a micropuncture needle was advanced into the vein. A captured sonographic image documents the position of the needle. Needle was exchanged over a wire for a peel-away sheath. Despite the fact the guidewire advanced well in the right atrium, I was unable to push the PICC line beyond the confluence of the right subclavian and superior vena cava, apparently due to focal stenosis from the AICD leads. A venogram was then performed through the second lumen of the PICC line confirming focal stenosis at the thoracic inlet. The PICC line was then removed over wire, cut to a length of 24 cm, and readvanced over the wire until the tip was in the mid right subclavian vein. The position of the catheter was confirmed with fluoroscopic guidance and an image stored in PACS. The wire and sheath were removed. Both ports of the PICC were aspirated and flushed with heparinized saline. The device was secured with a StatLock. Fluoroscopy: 3.9 minutes. Contrast: Visipaque 320, 5 cc. Impression: PICC line ready for immediate use, placed as a mid right subclavian line due to central stenosis. Routine catheter care. PROCEDURE INTERPRETED AT [facility] DEPARTMENT OF RADIOLOGY Final Report Signed by: Jake Phillips M.D.
[2017-02-09] MEDS: LEVOFLOXACIN INJ 500 MG in PREMIX 1 EACH IV SCH (21:16)
[2017-02-09] MEDS: CARVEDILOL 6.25 MG TABLET PO SCH (21:16)
[2017-02-10] MEDS: NOREPINEPHRINE 8 MG in SODIUM CHLORIDE 0.9% 242 ML IV SCH ×2 (02:34→11:59)
[2017-02-10] MEDS: CEFTAROLINE 200 MG in SODIUM CHLORIDE 0.9% 100 ML IV SCH (03:23)
[2017-02-10] MEDS: SODIUM ACETATE 150 MEQ in DEXTROSE 5% 925 ML IV SCH ×2 (03:25→13:44)
[2017-02-10 04:42] LABS: Basophils % 0.2 % (0.0-0.8); Eosinophils # 0.1 10*3/uL (0.0-0.87); Eosinophils % 1.2 % (0.00-10.9); Hemoglobin 9.9 GM/DL (12.0-16.0); Immature Granulocytes % 1.2 %; Immature Granulocytes Absolute 0.08 #; Lymphocytes # 0.5 10*3/uL (1.4-4.0); Lymphocytes % 8.3 % (21.3-54.2); Mean Corpuscular HGB Conc 31.9 GM/DL (32-36); Mean Corpuscular Hemoglobin 27 PG (27-34); Mean Corpuscular Volume 83.3 FL (87-102); Monocytes # 0.7 10*3/uL (0.11-0.8); Monocytes % 10.1 % (1.7-12.7); NRBC # 0.06 10*3/uL; Neutrophils # 5.2 10*3/uL (1.4-7.4); Red Blood Count 3.72 MC/CUMM (3.8-5.5); Red Cell Distribution Width 25.7 % (9.3-17.3); White Blood Count 6.5 T/CUMM (4-12)
[2017-02-10 04:52] LABS: Platelet Count 50 T/CUMM (130-400)
[2017-02-10 05:13] LABS: Albumin 3.1 G/DL (3.4-5.0); Bilirubin,Total 1.9 MG/DL (0.2-1.0); Calcium 7.4 MG/DL (8.5-10.1); Osmolality,Calculated 303.1 MOS/KG (273-304); Potassium 4.4 MMOL/L (3.5-5.1)
--- NOTE | 2017-02-10 07:09 | Nephrology Progress Note ---
Nephrology - PN: Subj Interval history: Patient is without complaints. She denies shortness of breath. Review of systems GI she denies nausea or vomiting Physical exam general patient is chronically ill-appearing, she has 2+ pretibial edema Assessment/plan 1. Acute renal failure on chronic kidney disease-this patient' s creatinine continues to rise, her urine output was about 250 cc over 24 hours yesterday, will continue to monitor this hopefully she will begin to turn around before we have to place her on dialysis. 2. Sepsis-continue antibiotics 3. Diabetes mellitus 4. Metabolic acidosis this is improved 5. Volume overload-patient has a lot of third spacing of fluid in her legs probably related to her hypoalbuminemic state, I am going to decrease her IV fluid rate some. Exam (PN)-Nephrology - Vital Signs Vital signs: Period Temp Pulse Resp BP Sys/Minor Pulse Ox Last 24 Hr 97.9 F-98.9 F 66-81 12-21 116-173/52-95 94-98 - Lab 02/10/17 04:04 02/10/17 04:04 Most recent lab results Calcium 7.4 MG/DL (8.5-10.1) L 02/10/17 04:04 Magnesium 2.3 MG/DL (1.8-2.4) 02/09/17 04:28 Assessment and Plan (1) Acute renal failure Status: Acute Assessment and plan: This patient's creatinine in the past has been around 2.5 mg/dL, on presentation here creatinine was around 3 mg/dL it has increased to 3.6 mg/dL over the ensuing couple of days, she is also had a decreased urine output in the past 24 hours, I suspect she has an ATN injury developing from her hypotension and sepsis. She also has a poor intravascular volume related to her decreased albumin. I suspect her underlying chronic kidney disease is related to diabetes and hypertension. Current Visit: No (2) Hypoalbuminemia Status: Acute Assessment and plan: I suspect this patient has significant diabetic nephropathy with albuminuria, she presently is getting albumin infused this may be worth continuing for 3 or 4 days but beyond this I do not think it is of any major value. Current Visit: Yes (3) History of hypertension Status: Acute Current Visit: Yes (4) Diabetes mellitus Status: Acute Current Visit: Yes Qualifiers: Diabetes mellitus type: type 2 Diabetes mellitus complication status: with kidney complications Diabetes mellitus complication detail: with chronic kidney disease Diabetes mellitus custodial insulin use: with terminologist use Chronic kidney disease stage: stage 3 (moderate) Qualified Code(s): E11.22 - Type 2 diabetes mellitus with diabetic chronic kidney disease; N18.3 - Chronic kidney disease, stage 3 (moderate); Z79.4 - equipment operator intermodal yard (current) use of insulin (5) Anemia Status: Chronic Current Visit: No Qualifiers: Other causes of anemia: chronic disease, kidney (6) Sepsis Status: Acute Current Visit: Yes Qualifiers: Sepsis type: sepsis due to unspecified organism Qualified Code(s): A41.9 - Sepsis, unspecified organism (7) CKD (chronic kidney disease) stage 3, GFR 30-59 ml/min Status: Acute Current Visit: Yes (8) Metabolic acidosis Status: Acute Assessment and plan: I am going to add some sodium bicarbonate to her IV fluids Current Visit: Yes
[2017-02-10] MEDS: ALBUMIN 25% 25 GM in PREMIX 1 EACH IV SCH (08:26)
[2017-02-10] MEDS: GABAPENTIN 100 MG CAPSULE PO SCH (08:27)
[2017-02-10] MEDS: ASPIRIN EC 81 MG TABLET PO SCH (08:27)
[2017-02-10] MEDS: CARVEDILOL 6.25 MG TABLET PO SCH (08:27)
[2017-02-10] MEDS: INSULIN LISPRO 100 UNIT/ML SUBCUT SCH ×2 (08:27→12:30)
[2017-02-10] MEDS: SILVER SULFADIAZINE 1% CREAM 25 GM TUBE TOP SCH (08:50)
[2017-02-10] MEDS ORDERED: ATROPINE 1 MG/10 ML SYRINGE ONE ×2 (10:09)
[2017-02-10] MEDS ORDERED: SODIUM BICARBONATE 50 MEQ/50 ML VIAL IV ONE (10:09)
[2017-02-10] MEDS ORDERED: SODIUM BICARBONATE 50 MEQ/50 ML SYRINGE IV ONE (10:09)
[2017-02-10] MEDS ORDERED: EPINEPHrine 1 MG/ML VIAL ONE ×3 (10:09→12:13)
[2017-02-10] MEDS ORDERED: PROPOFOL 1,000 MG/100 ML BOTTLE IV SCH (10:30)
--- NOTE | 2017-02-10 10:33 | XRay Report ---
XR chest 1V Indication: Post code Comparison: Chest x-ray dated February 07, 2017 Technique: Single frontal view of the chest Findings: Endotracheal tube approximately 6 mm above the felipe. Consider retraction by approximately 2 cm. Continued cardiomegaly. Interval development of diffuse hazy opacification throughout the right lung suggesting atelectasis or consolidative process such as asymmetric pulmonary edema. There is continued left basilar atelectasis/consolidation. Cardiac pacemaker apparatus again noted. Osseous and surrounding soft tissue structures appear grossly unchanged. IMPRESSION: As above. PROCEDURE INTERPRETED AT [facility] DEPARTMENT OF RADIOLOGY Final Report Signed by: Dr Collin Souza
--- NOTE | 2017-02-10 10:34 | EKG Report ---
Stationary ECG Study [facility] Test Date: 02/10/2017 10:19:37 AM Pat Name: MARIA ISABEL GEIGER Department: Room: 116 Gender: F Public Health Director: NIMA : 1945 Requested by: Alesia Chaparro Order Number: [id number] Reading MD: GIL BOATENG Intervals [place] Rate: 94 P: 59 [place]: 129 QRS: 68 QRSD: 88 T: 205 QT: 371 QTc: 423 Interpretive Statements SINUS RHYTHM WITH FREQUENT VENTRICULAR PREMATURE COMPLEXESAt 94 bpm Demand atrial pacing LOW QRS VOLTAGE IN EXTREMITY LEADS ST DEVIATION AND MODERATE T-WAVE ABNORMALITY, CONSIDER ISCHEMIA Electronically Signed On 02-15-17 15:32:02 CDT by GIL BOATENG [email or web address]
[2017-02-10 11:08] LABS: Pt O2 Delivery Device Ventilator
[2017-02-10 11:09] LABS: ABG Base Excess -14.8 MMOL/L (-2.5-2.5); ABG HCO3 8.7 MMOL/L (20-26); ABG Oxygen Saturation 99.5 % (95-100); ABG PH 7.339 (7.35-7.45); ABG PO2 315.5 MM HG (80-95); ABG TCO2 9.2 MMOL/L (23-27)
[2017-02-10 11:11] LABS: ABG PCO2 16.6 MM HG (35-48)
--- NOTE | 2017-02-10 11:45 | Pulmonology Consult Note ---
Assessment and Plan (1) Acute on chronic systolic (congestive) heart failure Status: Acute Assessment and plan: History of very low ejection fraction. Cardiomegaly and pleural effusions. Likely has end-stage heart failure. Cardiology is to see. Current Visit: Yes (2) Cardiac arrest Status: Acute Assessment and plan: Patient had a cardiac arrest earlier this morning. She had a second 1 while I was dictating this note and we went back in and did more CPR. Presently her blood pressure is 170 systolic. She is not requiring pressors as yet. Because of the arrest is likely due to her end-stage heart disease. Plus sepsis. Current Visit: Yes (3) Acute on chronic renal failure Status: Acute Assessment and plan: Creatinine is risen from 2.7 to 3.9. Current Visit: No (4) Septic shock Status: Acute Assessment and plan: Patient is on Teflaro. Cultures negative thus far. She grew staph auricularis from her urine. This is not likely to be a urinary pathogen. Source of the sepsis would be more likely the cellulitis. Current Visit: Yes (5) Metabolic acidosis Status: Acute Assessment and plan: Trying to compensate the hyperventilating her. Current Visit: Yes (6) Acute respiratory failure Status: Acute Assessment and plan: Patient on mechanical ventilation. Requiring hyperventilation to correct for metabolic acidosis. Does not have any known underlying lung disease. Does have congestive heart failure with pleural effusions. Current Visit: Yes History of Present Illness Chief complaint: Respiratory failure History of present illness: Ms. Blackmon is a 71 year old female , who was admitted 3 days ago with apparent cellulitis of the right leg and left arm and sepsis. She also had acute kidney injury and elevated liver test. Earlier this morning she had a cardiopulmonary arrest and was intubated. She was given pressors. She is now responsive again but has been sedated for the ventilator. She has a history of a severe cardiomyopathy reportedly an ejection fraction of about 15% . She had bilateral pleural effusions on admission. Her weight is up a good bit since admission. She was administered fluids because of her septic shock initially. Unable to obtain any more history from the patient. She had a creatinine of 2.7 that is risen somewhat since admission. Home Medications Medication Instructions Recorded Confirmed Type Carvedilol 0.5 tablet PO BID 09/19/15 02/07/17 History Furosemide Tab [Lasix Tab] 40 mg PO DAILY 09/19/15 02/09/17 History Simvastatin 20 mg PO BEDTIME 09/19/15 02/07/17 History Aspirin [Ecotrin] 81 mg PO DAILY 05/06/16 02/07/17 History Saxagliptin HCl [Onglyza] 2.5 mg PO DAILY 05/06/16 02/07/17 History Meclizine [Antivert] 25 mg PO TID #14 tablet 11/02/16 02/09/17 Rx HYDROcodone/ACETAMIN 5-325 [[place] 1 tablet PO Q8HR PRN 02/07/17 02/09/17 History 5-325] Ibuprofen 600 mg PO Q6HR PRN 02/07/17 02/07/17 History glipiZIDE XL [Glucotrol Xl] 5 mg PO DAILY W/BREAKFAST 02/07/17 02/07/17 History Silver Sulfadiazine [Silver 1 applic TOP DAILY 02/09/17 02/09/17 History Sulfadiazine 1% Cream] Allergies Allergy/AdvReac Type Severity Reaction Status Date / Time Sulfa (Sulfonamide Allergy Unknown Unknown/Unable Verified 02/06/17 21:20 Antibiotics) to obtain ROS unobtainable: due to endotracheal tube Exam (Pulmonay) H&P - Constitutional Vitals: Period Temp Pulse Resp BP Sys/Minor Pulse Ox Last 24 Hr 97.9 F-98.9 F 60-79 8-21 88-173/52-95 92-98 Exam: She has a palpable pulse. The indirect blood pressure medicine has not given us an exact number and she is getting an a line put in shortly. Vital signs otherwise normal. Pupils react. They are midpoint. Orotracheal tube in place. Neck is supple no bruits. Chest reveals dullness and decreased breath sounds at both bases. She does have a few rales. Heart normal rate and rhythm I do not hear any murmurs. Abdomen soft nontender no masses. Bowel sounds decreased but present. Extremities she has 2-3+ peripheral edema both lower extremities. Medical,Surgical,& Family Hx - Medical History Cardio: History of: CHF, Hypertension, Pacemaker, Cardiovascular Problems ( murmur) Endocrine: History of: Diabetes Mellitus (IDDM), Diabetes Mellitus (NIDDM), Dyslipidemia Gastrointestinal: History of: Diverticulitis/ Diverticulosis Reproductive: History of: Breast Cancer (remission, did have chemo and radiation ) - Surgical History Cardiac Surgeries: Sugical HX of: Cardiac Catheterization (stent), Vascular Access Devices (pacer) Reproductive Surgeries: Surgical HX of;: Breast Surgery (left breast removed.) - Family History Family History: Reports;: Family Diabetes, Family Heart Disease - Social History Smoking Status: Former smoker Frequency of Alcohol Use: None Type of Drug Use: None Results - Labs CBC & BMP: 02/10/17 04:04 02/10/17 04:04 Lab Results: I have reviewed the past 24 hour labs - Diagnostic Findings Procedure: Chest x-ray: image reviewed by me (Bilateral pleural effusions. ET tube is about half a centimeter above the felipe needs to be pulled back 2 cm. Right pacemaker. Right PICC line ends up being midline in the right subclavian at its tip.)
--- NOTE | 2017-02-10 12:31 | ECHO Report ---
Raffi Blackmon Exam Date: 02/09/2017 14:45 Referring Physician: Technologist: Kasie Raman Age: 71 Ht (in): Wt (lb): Gender: F Exam Location: [facility] Echo Indications: Hx. Breast CA, pacemaker, sepsis, IDDM, Kidney disease, HTN BP: 135 / 57 HR: 76 Rhythm: Sinus Technical Quality: IMPRESSIONS 1. Left ventricle is mildly dilated with global severe hypokinesis and ejection fraction 10-15%. At worst minimal left ventricle hypertrophy. 2. Right ventricle and right atrial is moderately dilated. 3. Left atrium is mildly dilated. 4. Sclerotic mitral valve with moderate regurgitation. 5. Aortic valve mildly sclerotic with trace regurgitation. 6. Moderate to severe tricuspid valve regurgitation. 7. Mild pulmonic valve regurgitation. 8. Mild to moderately elevated right-sided pressures. 9. There is no gross intracardiac mass or thrombus noted. 10. Pacemaker leads noted in the right sided chambers. MEASUREMENTS (Male / Female) Normal Values 2D ECHO LV Diastolic Diameter PLAX 4.8 cm 4.2 - 5.9 / 3.9 - 5.3 cm LV Systolic Diameter PLAX 4.6 cm LV Fractional Shortening PLAX 3.6 % IVS Diastolic Thickness 1.2 cm 0.6 - 1.0 / 0.6 - 0.9 cm LVPW Diastolic Thickness 1.1 cm 0.6 - 1.0 / 0.6 - 0.9 cm RV Internal Dim ED PLAX 3.5 cm Aortic Root Diameter 2.5 cm LA Systolic Diameter LX 3.9 cm 3.0 - 4.0 / 2.7 - 3.8 cm DOPPLER TR Peak Velocity 323.0 cm/s TR Peak Gradient 41.7 mmHg FINDINGS Left Ventricle Left ventricle appears to be mildly dilated with severe global hypokinesis. Ejection fraction is in the neighborhood of 10 to 15%. Patient has borderline minimal left ventricular hypertrophy. Right Ventricle Moderately increased right ventricular size. Pacemaker leads are noted. Right Atrium The right atrium is moderately enlarged. Pacemaker leads are noted. Left Atrium Mildly increased left atrial diameter. Mitral Valve Mild mitral valve sclerosis. Moderate mitral valve regurgitation. Aortic Valve Aortic valve is a tricuspid structure with mild sclerosis with normal excursion without stenosis with trace regurgitation. Tricuspid Valve Mild tricuspid valve sclerosis. Moderate to severe tricuspid valve regurgitation. Tricuspid regurgitation velocities suggest a PAP estimate of 47-52 mmHg Pulmonic Valve Pulmonic valve sclerosis. Mild pulmonary valve regurgitation. Pericardium No pericardial effusion. Pleural effusion is present. Aorta Normal size aortic root and proximal ascending aorta. Jake Bella MD (Electronically Signed) Final Date: 10 Feb 2017 12:23
--- NOTE | 2017-02-10 12:45 | Cardiology Consult Note ---
Assessment and Plan (1) PEA (Pulseless electrical activity) Status: Acute Assessment and plan: This acute event in the and required intubation. Epinephrine was given with response. The patient presently is on epinephrine and Levophed infusions. Patient has adequate blood pressure and heart rate and rhythm. Etiology of this is unclear. With her having blood in her endotracheal tube and ET suction and does not appear to be frothy pulmonary edema fluid and the fact that she had a nontraumatic intubation may lead to the possibility that this is a pulmonary embolus as a cause of event. Current Visit: Yes (2) Acute on chronic renal failure Status: Acute Assessment and plan: Patient is having progressively increasing creatinine. Nephrology is following. Current Visit: No (3) Acute on chronic diastolic CHF (congestive heart failure) Status: Acute Assessment and plan: Patient has chronic and severe left ventricular dysfunction that appears to be unchanged from comparison of echocardiograms. Current Visit: No (4) Septic shock Status: Acute Assessment and plan: This breath inspection is in nature and is being followed by primary service. Current Visit: Yes (5) Hypoalbuminemia Status: Acute Assessment and plan: May be secondary to proteinuria as well as nutritional and other issues. This may be contributing to her edema. Current Visit: Yes (6) Cardiac arrest Status: Acute Assessment and plan: Car and arrest secondary to going into PEA requiring resuscitation measures. Current Visit: Yes (7) Acute respiratory failure Status: Acute Assessment and plan: Respiratory failure been now followed by applying medicine on the ventilator. Current Visit: Yes History of Present Illness - Data of Consult Patient: new to practice Consult date: 02/10/17 Requesting Physician: Alesia Chaparro - Consult Narrative Reason for consult: severe cardiomyopathy with PEA History of present illness: Ms. Blackmon is a 71 year old female who we're seeing why she is being resuscitated from having had loss of pulses with PEA. The patient is been resuscitated at the time of this dictation. Is present during our the resuscitation process. No history of rheumatic is already on the chart is available. I'll review some of that below. On my arrival CPR was underway inpatient receiving epinephrine bicarbonate. The patient had blood coming from the endotracheal tube but did not appear be frothy or what would be seen with pulmonary edema. Patient at the time resuscitation is presently in sinus tachycardia and elevated blood pressure. Chest x-ray reveals some opacification of entire right lung which could represent unilateral pulmonary edema or even effusion. CT of the chest on 02/07/17 does reveal by report and large right pleural effusion and moderate left pleural effusion. The echocardiogram reveals ejection fraction 10-15% mobile hypokinesis and left ventricular enlargement. The right ventricle is well as right and left atrium are dilated. The patient has moderate mitral regurgitation and moderate to severe tricuspid regurgitation and sclerotic aortic valve. There is at least moderately elevated right-sided pressures. This is similar to an echocardiogram from 09/17. Review of the chart the patient. He came in septic shock with renal insufficiency has a history of diabetes. She has skin lesions. She has a history of having pacemaker. 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 Her pacemaker is a dual-chamber AICD. Her ECG is revealed sinus rhythm with inferior lateral ST T abnormalities and a QRS complex less 120 ms. The time this dictation the patient is post resuscitation. Present she is only Levophed and epinephrine infusion. CC: Alesia Chaparro MD - Home Medications and Allergies Home Medications: Home Medications Medication Instructions Recorded Confirmed Type Carvedilol 0.5 tablet PO BID 09/19/15 02/07/17 History Furosemide Tab [Lasix Tab] 40 mg PO DAILY 09/19/15 02/09/17 History Simvastatin 20 mg PO BEDTIME 09/19/15 02/07/17 History Aspirin [Ecotrin] 81 mg PO DAILY 05/06/16 02/07/17 History Saxagliptin HCl [Onglyza] 2.5 mg PO DAILY 05/06/16 02/07/17 History Meclizine [Antivert] 25 mg PO TID #14 tablet 11/02/16 02/09/17 Rx HYDROcodone/ACETAMIN 5-325 [[place] 1 tablet PO Q8HR PRN 02/07/17 02/09/17 History 5-325] Ibuprofen 600 mg PO Q6HR PRN 02/07/17 02/07/17 History glipiZIDE XL [Glucotrol Xl] 5 mg PO DAILY W/BREAKFAST 02/07/17 02/07/17 History Silver Sulfadiazine [Silver 1 applic TOP DAILY 02/09/17 02/09/17 History Sulfadiazine 1% Cream] Allergies/Adverse Reactions: Allergies Allergy/AdvReac Type Severity Reaction Status Date / Time Sulfa (Sulfonamide Allergy Unknown Unknown/Unable Verified 02/06/17 21:20 Antibiotics) to obtain ROS unobtainable: due to endotracheal tube Medical,Surgical,& Family Hx - Medical History Cardio: History of: CHF, Hypertension, Pacemaker, Cardiovascular Problems ( murmur) Endocrine: History of: Diabetes Mellitus (IDDM), Diabetes Mellitus (NIDDM), Dyslipidemia Gastrointestinal: History of: Diverticulitis/ Diverticulosis Reproductive: History of: Breast Cancer (remission, did have chemo and radiation ) - Surgical History Cardiac Surgeries: Sugical HX of: Cardiac Catheterization (stent), Vascular Access Devices (pacer) Reproductive Surgeries: Surgical HX of;: Breast Surgery (left breast removed.) - Family History Family History: Reports;: Family Diabetes, Family Heart Disease - Social History Smoking Status: Former smoker Frequency of Alcohol Use: None Type of Drug Use: None Physical Examination Vital Signs Temp Pulse Resp BP Pulse Ox 93.0 F L 60 12 92/55 97 02/06/17 21:08 02/06/17 21:08 02/06/17 21:08 02/06/17 21:08 02/06/17 21:08 Other: Gen. appearance: She is an overweight female who is orally intubated and sedate. HEENT: Oral intubated. Neck: Trachea is midline. No gross bruit heard. Lungs: Coarse breath sounds anteriorly. No wheezing noted. Cardiovascular: Very distant heart sounds without gross murmur gallop or rub. Chest wall: Pacemaker right upper chest. Abdomen: Soft diminished bowel sounds. Nontender protuberant. Extremities: Edema Skin: Warm Neurologic: Patient unresponsive Result/EKG - Labs CBC & BMP: 02/10/17 04:04 02/10/17 04:04 Lab Results: I have reviewed the past 24 hour labs Labs: Laboratory Results - last 24 hr 02/07/17 02/09/17 02/09/17 03:20 09:50 15:52 WBC RBC Hgb Hct MCV MCH MCHC RDW Plt Count Neut % (Auto) Lymph % (Auto) Chase % (Auto) Eos % (Auto) Baso % (Auto) Neut # (Auto) Lymph # (Auto) Chase # (Auto) Eos # (Auto) Baso # (Auto) Immature Gran % Nucleated RBC % Immature Gran # Nucleated RBCs # ABG pH ABG pCO2 ABG pO2 ABG HCO3 ABG Total CO2 ABG O2 Saturation ABG Base Excess FiO2 Sodium Potassium Chloride Carbon Dioxide Anion Gap BUN Creatinine GFR Calculation BUN/Creatinine Ratio Glucose POC Glucose 198 H Calculated Osmolality Calcium Total Bilirubin AST ALT Alkaline Phosphatase Lactate Dehydrogenase Total Protein Albumin Globulin Albumin/Globulin Ratio Procalcitonin 0.55 H Ur Random Creatinine 107 Ur Random Microalbumin 762.0 H Microalb/Creat Ratio 712.1 H 02/09/17 02/10/17 02/10/17 20:37 04:04 04:04 WBC 6.5 RBC 3.72 L Hgb 9.9 L Hct 31.0 L MCV 83.3 L MCH 27 MCHC 31.9 L RDW 25.7 H Plt Count 50 L Neut % (Auto) 79.0 H Lymph % (Auto) 8.3 L Chase % (Auto) 10.1 Eos % (Auto) 1.2 Baso % (Auto) 0.2 Neut # (Auto) 5.2 Lymph # (Auto) 0.5 L Chase # (Auto) 0.7 Eos # (Auto) 0.1 Baso # (Auto) 0.0 Immature Gran % 1.2 Nucleated RBC % 0.9 Immature Gran # 0.08 Nucleated RBCs # 0.06 ABG pH ABG pCO2 ABG pO2 ABG HCO3 ABG Total CO2 ABG O2 Saturation ABG Base Excess FiO2 Sodium 142 Potassium 4.4 Chloride 111 H Carbon Dioxide 18 L Anion Gap 17.4 H BUN 65 H Creatinine 3.90 H GFR Calculation 11 BUN/Creatinine Ratio 16.00 Glucose 143 H POC Glucose 186 H Calculated Osmolality 303.1 Calcium 7.4 L Total Bilirubin 1.90 H AST 25 ALT 19 Alkaline Phosphatase 166 H Lactate Dehydrogenase 253 H Total Protein 6.0 L Albumin 3.1 L Globulin 2.9 Albumin/Globulin Ratio 1.0 L Procalcitonin Ur Random Creatinine Ur Random Microalbumin Microalb/Creat Ratio 02/10/17 02/10/17 02/10/17 07:03 11:02 11:19 WBC RBC Hgb Hct MCV MCH MCHC RDW Plt Count Neut % (Auto) Lymph % (Auto) Chase % (Auto) Eos % (Auto) Baso % (Auto) Neut # (Auto) Lymph # (Auto) Chase # (Auto) Eos # (Auto) Baso # (Auto) Immature Gran % Nucleated RBC % Immature Gran # Nucleated RBCs # ABG pH 7.339 L ABG pCO2 16.6 L* ABG pO2 315.5 H ABG HCO3 8.7 L ABG Total CO2 9.2 L ABG O2 Saturation 99.5 ABG Base Excess -14.8 L FiO2 100.00 Sodium Potassium Chloride Carbon Dioxide Anion Gap BUN Creatinine GFR Calculation BUN/Creatinine Ratio Glucose POC Glucose 177 H 225 H Calculated Osmolality Calcium Total Bilirubin AST ALT Alkaline Phosphatase Lactate Dehydrogenase Total Protein Albumin Globulin Albumin/Globulin Ratio Procalcitonin Ur Random Creatinine Ur Random Microalbumin Microalb/Creat Ratio - Impressions Impressions: ECG from earlier this morning was sinus rhythm with an isolated PVC. There are ST-T abnormalities inferolaterally possible ischemia. QRS duration is 88 ms.
--- NOTE | 2017-02-10 12:50 | XRay Report ---
XR chest 1V portable Indication: Intubated. Pulmonary hemorrhage. Chest one view: Since 1010 hours, endotracheal tube position remains within 2 cm of the felipe. NG tube, pacemaker/AICD, right mid length PICC line, left mastectomy, surgical clips left axilla, and right greater than left interstitial coarsening of the lungs appears stable. Cardiomegaly is unchanged as well. Impression: Minimally withdrawn endotracheal tube should be adequate. Otherwise no change. PROCEDURE INTERPRETED AT [facility] DEPARTMENT OF RADIOLOGY Final Report Signed by: Jake Phillips M.D.
--- NOTE | 2017-02-10 13:02 | Event Note ---
The patient again went into PEA require resuscitation measures. The patient received bicarbonate and epinephrine. Patient's rhythm returned as well as blood pressure. The patient is blood pressure and rhythm changed before this event. She developed a wide QRS complex on and off. The patient did arrive in discussing her present situation. Dr. Chaparro is going to discuss this more detail.
--- NOTE | 2017-02-10 14:24 | Discharge Summary ---
Hospital Course - Hospital Course Hospital Course: Ms. Blackmon is a 71-year-old [place] female that was to the hospital with sepsis secondary to urinary tract infection and cellulitis. She was treated with IV antibiotics and IV fluids. She had acute on chronic kidney disease with worsening creatinine. Her baseline renal function was creatinine of 2.5 and it increased to 3.6. She was seen in consultation by nephrology. Urine cultures were positive for staph auricularis. Her cellulitis was improving on Teflaro and Levaquin. Her mental status improved and she seemed to be getting better. On February 10, 2017 the patient had a sudden unexpected cardiac arrest with pulseless electrical activity and became apneic. She was rapidly intubated and resuscitated with ACLS protocols. The patient has a history of significant congestive heart failure with ejection fraction of 10-15%. Repeat echocardiogram done on 02/09/2017 confirms her history of congestive heart failure. Despite aggressive efforts to resuscitate the patient including Levophed and epinephrine drip and intubation with mechanical ventilation, she ultimately succumbed to her illness at approximately 1:33 PM on 02/10/2017. Her family was all at the bedside and agreed to discontinue resuscitation. The patient had cardiac arrest 4 times throughout the morning hours. Each episode was preceded by hypotension and then pulseless electrical activity. Pulse was regained with chest compressions and epinephrine administration. The patient was then maintained on an epinephrine drip but continued to have cardiac arrest despite aggressive treatment. At the family's request, resuscitation measures were discontinued and the patient was allowed to pass. The case was discussed with pulmonary as well as cardiology and the patient's family and [place] liaison. Cause of : Congestive heart failure Acute respiratory failure Sepsis Acute on chronic kidney disease TOD 1:33 PM - Time spent with patient Time with patient DS: Greater than 30 minutes - Cause of Cause of : CHF, Respiratory failure, Sepsis, UTI, ARF Diagnosis - Discharge Diagnosis (1) Cellulitis Status: Acute (2) Sepsis Status: Acute (3) Diabetes mellitus Status: Acute (4) Anemia Status: Chronic (5) CKD (chronic kidney disease) stage 3, GFR 30-59 ml/min Status: Acute (6) Thrombocytopenia Status: Acute (7) Elevated liver enzymes Status: Acute (8) Chronic CHF (congestive heart failure) Status: Chronic (9) Acute respiratory failure Status: Acute (10) Hypoalbuminemia Status: Acute (11) Metabolic acidosis Status: Acute (12) Cardiac arrest Status: Acute (13) PEA (Pulseless electrical activity) Status: Acute Discharge Plan - Discharge Data Disposition: - Discharge Medications No Action Simvastatin 20 mg PO BEDTIME Furosemide Tab [Lasix Tab] 40 mg PO DAILY Carvedilol 0.5 tablet PO BID Aspirin [Ecotrin] 81 mg PO DAILY Saxagliptin HCl [Onglyza] 2.5 mg PO DAILY Meclizine [Antivert] 25 mg PO TID #14 tablet HYDROcodone/ACETAMIN 5-325 [[place] 5-325] 1 tablet PO Q8HR PRN PRN Reason: Pain Ibuprofen 600 mg PO Q6HR PRN PRN Reason: Pain Mild To Moderate (1-7) glipiZIDE XL [Glucotrol Xl] 5 mg PO DAILY W/BREAKFAST Silver Sulfadiazine [Silver Sulfadiazine 1% Cream] 1 applic TOP DAILY - Follow Up or Referral - Forms/Instructions Exam - Constitutional Vitals: Period Temp Pulse Resp BP Sys/Minor Pulse Ox Last 24 Hr 98.2 F-98.9 F 60-79 8-21 88-173/52-83 92-98 Discharge Results Procedures and tests throughout hospitalization: Pending Orders 02/07/17 03:20 Blood Culture Stat 02/10/17 12:34 ABG [Arterial Blood Gas] Stat Labs on day of discharge: Labs from last 24 hours 02/10/17 02/10/17 02/10/17 11:19 11:02 07:03 WBC RBC Hgb Hct MCV MCH MCHC RDW Plt Count Neut % (Auto) Lymph % (Auto) [place] % (Auto) Eos % (Auto) Baso % (Auto) Neut # (Auto) Lymph # (Auto) [place] # (Auto) Eos # (Auto) Baso # (Auto) Immature Gran % Nucleated RBC % Immature Gran # Nucleated RBCs # ABG pH 7.339 L ABG pCO2 16.6 L* ABG pO2 315.5 H ABG HCO3 8.7 L ABG Total CO2 9.2 L ABG O2 Saturation 99.5 ABG Base Excess -14.8 L FiO2 100.00 Sodium Potassium Chloride Carbon Dioxide Anion Gap BUN Creatinine GFR Calculation BUN/Creatinine Ratio Glucose POC Glucose 225 H 177 H Calculated Osmolality Calcium Total Bilirubin AST ALT Alkaline Phosphatase Lactate Dehydrogenase Total Protein Albumin Globulin Albumin/Globulin Ratio 05/10/17 05/10/17 05/09/17 04:04 04:04 20:37 WBC 6.5 RBC 3.72 L Hgb 9.9 L Hct 31.0 L MCV 83.3 L MCH 27 MCHC 31.9 L RDW 25.7 H Plt Count 50 L Neut % (Auto) 79.0 H Lymph % (Auto) 8.3 L [place] % (Auto) 10.1 Eos % (Auto) 1.2 Baso % (Auto) 0.2 Neut # (Auto) 5.2 Lymph # (Auto) 0.5 L [place] # (Auto) 0.7 Eos # (Auto) 0.1 Baso # (Auto) 0.0 Immature Gran % 1.2 Nucleated RBC % 0.9 Immature Gran # 0.08 Nucleated RBCs # 0.06 ABG pH ABG pCO2 ABG pO2 ABG HCO3 ABG Total CO2 ABG O2 Saturation ABG Base Excess FiO2 Sodium 142 Potassium 4.4 Chloride 111 H Carbon Dioxide 18 L Anion Gap 17.4 H BUN 65 H Creatinine 3.90 H GFR Calculation 11 BUN/Creatinine Ratio 16.00 Glucose 143 H POC Glucose 186 H Calculated Osmolality 303.1 Calcium 7.4 L Total Bilirubin 1.90 H AST 25 ALT 19 Alkaline Phosphatase 166 H Lactate Dehydrogenase 253 H Total Protein 6.0 L Albumin 3.1 L Globulin 2.9 Albumin/Globulin Ratio 1.0 L 02/09/17 15:52 WBC RBC Hgb Hct MCV MCH MCHC RDW Plt Count Neut % (Auto) Lymph % (Auto) [place] % (Auto) Eos % (Auto) Baso % (Auto) Neut # (Auto) Lymph # (Auto) [place] # (Auto) Eos # (Auto) Baso # (Auto) Immature Gran % Nucleated RBC % Immature Gran # Nucleated RBCs # ABG pH ABG pCO2 ABG pO2 ABG HCO3 ABG Total CO2 ABG O2 Saturation ABG Base Excess FiO2 Sodium Potassium Chloride Carbon Dioxide Anion Gap BUN Creatinine GFR Calculation BUN/Creatinine Ratio Glucose POC Glucose 198 H Calculated Osmolality Calcium Total Bilirubin AST ALT Alkaline Phosphatase Lactate Dehydrogenase Total Protein Albumin Globulin Albumin/Globulin Ratio Preliminary micro results at discharge 02/07/17 03:20 Blood Culture - Preliminary Blood No growth at 3 days 02/07/17 03:20 Blood Culture - Preliminary Blood No growth at 3 days DS: Provider Date of admission: 02/07/17 01:29 Primary care physician: Brenton Ashby MD Attending physician on admission: Jake Alexander MD Consults: 02/08/17 14:18 Consult to Physician [CONS] Routine Comment: Consulting Provider: Jake Rivas Consulting Provider Notified: Yes Consult to Specialist Group: Nephrology When should Consulting Provider be notified: Now Person Notified: NEEL Date Notified: 02/08/17 Time Notified: 14:25 02/10/17 10:03 Consult to Case Mgmt/Social Srvs [CONS] Routine Reason for Case Mgmt/Social Srvs: Discharge Planning LTAC 02/10/17 10:22 Consult to Physician [CONS] Routine Comment: cardiology- cardiac arrest, CHF- see echo Consulting Provider: Cardiology - [facility] Consulting Provider Notified: Yes Consult to Specialist Group: Cardiology Person Notified: [email or web address] Date Notified: 02/10/17 Time Notified: 11:00 02/10/17 10:23 Consult to Physician [CONS] Routine Comment: Respiratory failure Consulting Provider: Kavin Dozier Discharging clinician: Alesia Chaparro MD Expected date of discharge: 02/10/17
--- NOTE | 2017-02-10 14:28 | Event Note ---
- Intubation Sedative: None Mg given sedative: None Paralytic: None Mg given paralytic: None Laryngoscope: Alfredo ET Tube Size: 8 Tube Secured Depth (cm): 24 Tube Secured Location: lips Tube Placement Confirmation: visualized tube passing through cords, equal breath sounds bilaterally, no breath sounds over epigastrium, confirmation by capnometry, confirmation detector color change Patient tolerated procedure intubation: well, no complications Intubation Complications: None Additional Comments:
--- NOTE | 2017-02-10 14:39 | Event Note ---
Cardiopulmonary resuscitation Critical care time 65 minutes. I was called for CLAUDIO URIBE on Ms. Blackmon. The patient was found apneic and pulseless. CPR was started with chest compressions and epinephrine injection. The patient was rapidly intubated without difficulty. I intubated her using a MAC 3 blade and a 8.0 tube. CPR was continued and the patient regained a pulse. She lost the pulse again and required more epinephrine injection as well as bicarbonate. She was ultimately started on Levophed and epinephrine drip. Case discussed with consultants at the bedside. The family would like everything done at this time. The patient continued to have acute cardiac arrest with pulseless electrical activity. Labs were rechecked and chest x-ray reviewed. Patient has significant congestive heart failure with an ejection fraction of 10-15%. Despite epinephrine drip and Levophed she continues to lose her pulse and require CPR and added epinephrine. The family has decided to discontinue aggressive measures. The patient succumbed to her illness at 1:33 PM with her family at the bedside.
[2017-02-10 14:44] VITALS: BP 131/83
== END 2017-02-10 13:33 | disposition expired | DRG 871 ==
LOC: EDBD → EDUNIT# → N.ED 21:07 → SUATTDRO 02-07 01:29 → N.EDINP 02-07 01:29 → N.ICU 02-07 01:57
PROVIDERS: ADMIT Student in an Organized Health Care Education/Training Program; ATTEND Family Medicine